=== PATIENT | male | born 1960 | race Caucasian/White ===

== ENCOUNTER → 2021-08-20 | Outpatient (CLI) | payer MEDICARE ==
[~2021-08-20] MED LIST: NORFLEX 100 MG100 MG PO; Voltaren Gel 1 % TOP
== END ==
LOC: ECHO 08-04 09:45
DX: R06.02 Shortness of breath (principal)
CPT/HCPCS: ECHO; 93306

== ENCOUNTER → 2022-01-26 | Day surgery (SDC) | payer MEDICARE ==
[~2022-01-26] VITALS: Ht 182.9 cm; Wt 137.9 kg
[~2022-01-26] MED LIST changes: +ALL DAY ALLERGY10 MG PO; +CALCIUM + D3 E1 EACH PO; +CLOPIDOGREL75 MG PO; +GABAPENTIN600 MG PO; +HYDRALAZINE HCL25 MG PO; +HYDROCHLOROTHIA25 MG PO; +JANUVIA 100 MG100 MG PO; +MOVANTIK25 MG PO; +NUVIGIL150 MG PO; +PERCOCET 10-321 EACH PO; +VAZALORE325 MG PO; +ZESTRIL2.5 MG PO
== END | disposition home or self-care (01) ==
LOC: OR 08:15
DX: Z12.11 Encounter for screening for malignant neoplasm of colon (principal); K59.09 Other constipation; K64.1 Second degree hemorrhoids; Z98.0 Intestinal bypass and anastomosis status; I10 Essential (primary) hypertension; I25.10 Atherosclerotic heart disease of native coronary artery without angina pectoris; G47.30 Sleep apnea, unspecified; E66.01 Morbid (severe) obesity due to excess calories; M19.90 Unspecified osteoarthritis, unspecified site; E11.9 Type 2 diabetes mellitus without complications; F17.220 Nicotine dependence, chewing tobacco, uncomplicated; Z95.5 Presence of coronary angioplasty implant and graft; Z99.89 Dependence on other enabling machines and devices; Z79.01 Long term (current) use of anticoagulants; Z79.82 Long term (current) use of aspirin; Z79.899 Other long term (current) drug therapy; Z68.41 Body mass index [BMI] 40.0-44.9, adult
CPT/HCPCS: 43235; G0121; 82962; J7040